=== PATIENT | female | born 1935 | race Caucasian/White ===

== ENCOUNTER 2018-08-14 14:26 | Inpatient (IN) | payer OTHER, MEDICAID ==
[~2018-08-14] VITALS: Ht 157.5 cm; Wt 63.0 kg
[2018-08-14 14:26] VITALS: BP 121/65
--- NOTE | 2018-08-14 14:30 | NUR ---
83Y/F BIB EMS FROM [facility], C/O SOB. PT WAS BEING MOVED AND PER STAFF O2 SAT DROPPED TO 80S. PT NOW ON 6L O2 IN ED AT 100%. RECENTLY DIAGNOSED WITH PNA, PT IS AAOX4, +1 EDEMA ON ARMS, BED DOWN, BEDRAIL UP X 1, ER MD AWARE AND NOTIFIED OF PT STATUS. PMH---CHF, PNA, HTN NKA
--- NOTE | 2018-08-14 15:13 | NUR ---
Patient being evaluated by physician at bedside.
[2018-08-14] MEDS ORDERED: ALBUTEROL SULFATE/IPRATROPIU 3 ML SOL IH ONE (15:15)
[2018-08-14] MEDS ORDERED: AZITHROMYCIN 500 MG in DEXTROSE 5% 250 ML IV ONE (15:45)
--- NOTE | 2018-08-14 15:50 | NUR ---
LAB AT BEDSIDE
[2018-08-14] MEDS ORDERED: cefTRIAXone 1,000 MG VIAL ONE (16:01)
[2018-08-14] MEDS ORDERED: AZITHROMYCIN 500 MG INJ VIAL IV ONE (16:01)
[2018-08-14 16:10] LABS: BASOPHILS % (AUTO) 0.2 % (0.0-2.0); EOSINOPHILS # (AUTO) 0.2 K/uL (0-0.4); EOSINOPHILS % (AUTO) 1.7 % (0.0-4.0); HEMATOCRIT 31.2 % (36-48); HEMOGLOBIN 10.3 g/dL (12.0-16.0); LYMPHOCYTES # (AUTO) 1.7 K/uL (2.5-16.5); LYMPHOCYTES % (AUTO) 15.1 % (20.5-51.1); MEAN CORPUSCULAR HEMOGLOBIN 29 pg (27-31); MEAN CORPUSCULAR HGB CONC 33 g/dL (33-37); MONOCYTES # (AUTO) 0.7 K/uL (0.8-1.0); MONOCYTES % (AUTO) 6.5 % (1.7-9.3); NEUTROPHILS # (AUTO) 8.7 K/uL (1.8-7.7); NEUTROPHILS % (AUTO) 76.5 % (42.2-75.2); PLATELET COUNT (AUTO) 375 K/uL (140-450); RED CELL DISTRIBUTION WIDTH 17.1 % (11.6-13.7); WHITE BLOOD COUNT (AUTO) 11.3 K/uL (4.8-10.8)
[2018-08-14 16:24] LABS: ANION GAP 7.7 (8-16); CARBON DIOXIDE 35.7 mmol/L (21-32); CHLORIDE 92 mmol/L (98-107); CREATININE 1.4 mg/dL (0.6-1.3); GLUCOSE 163 mg/dL (74-106); POTASSIUM 3.4 mmol/L (3.5-5.1); SODIUM SERUM 132 mmol/L (136-145); UREA NITROGEN, BLOOD 17 mg/dL (7-18)
[2018-08-14 16:29] LABS: ASPARTATE AMINOTRANSFERASE 31 U/L (15-37); TOTAL BILIRUBIN 0.3 mg/dL (0.0-1.0)
--- NOTE | 2018-08-14 16:43 | NUR ---
X-RAY AT BEDSIDE
--- NOTE | 2018-08-14 17:05 | NUR ---
PT HEART WENT UP TO 160, ER MD NOTIFIED AND AT BEDSIDE.
[2018-08-14] MEDS ORDERED: ACETAMINOPHEN 325 MG TAB PO PRN (17:15)
[2018-08-14] MEDS ORDERED: ONDANSETRON 4 MG/2 ML VIAL IVP PRN (17:15)
[2018-08-14] MEDS ORDERED: HYDROcodone/APAP 7.5/325 MG 1 TAB PO PRN (17:15)
--- NOTE | 2018-08-14 17:19 | NUR ---
LAB AT BEDSIDE 2ND TIME
[2018-08-14] MEDS ORDERED: ONDA4TAB PO (17:24)
[2018-08-14] MEDS ORDERED: LEVO750T2 PO (17:24)
[2018-08-14] MEDS ORDERED: APIX2.5 PO (17:24)
[2018-08-14] MEDS ORDERED: [UNRECOGNIZED DRUG - CODE] PO (17:24)
[2018-08-14] MEDS ORDERED: ATOR10TA PO (17:24)
[2018-08-14] MEDS ORDERED: VITD1000 PO (17:24)
[2018-08-14] MEDS ORDERED: SYN.05 PO (17:24)
[2018-08-14] MEDS ORDERED: METO25TE2 PO (17:24)
[2018-08-14] MEDS ORDERED: FURO-570 PO (17:24)
[2018-08-14] MEDS ORDERED: LINA5TAB PO (17:24)
[2018-08-14] MEDS ORDERED: GABA100C PO (17:24)
[2018-08-14] MEDS ORDERED: ZAR2.5 PO (17:24)
[2018-08-14] MEDS ORDERED: [UNRECOGNIZED DRUG - CODE] PO (17:24)
[2018-08-14] MEDS ORDERED: ALLO100T21 PO (17:24)
[2018-08-14] MEDS ORDERED: ALBUTEROL SULFATE/IPRATROPIU 3 ML SOL IH PRN (17:35)
[2018-08-14] MEDS ORDERED: NACL 0.9% 500 ML IV ONE (17:35)
[2018-08-14] MEDS ORDERED: INSULIN LISPRO SLIDING SCALE 100 UNITS/ML VIAL SUBQ PRN (17:40)
[2018-08-14] MEDS ORDERED: DEXTROSE 50% 50 ML SYR IVP PRN (17:40)
--- NOTE | 2018-08-14 17:50 | NUR ---
RUSS DICKEY RN, STATES BED WILL BE READY AFTER ICU TRANSFER A PATIENT OUT OF BED 1
[2018-08-14] MEDS ORDERED: DEXT 5% /NACL 0.9% 1,000 ML IV SCH (17:55)
[2018-08-14] MEDS ORDERED: ALBUTEROL SULFATE/IPRATROPIU 3 ML SOL IH SCH (18:00)
[2018-08-14 18:04] LABS: FREE T4 (FREE THYROXINE) 0.48 ng/dL (0.76-1.46); MAGNESIUM 1.4 mg/dL (1.8-2.4); PHOSPHORUS 3.1 mg/dL (2.5-4.9); THYROID STIMULATING HORMONE 2.62 uIU/mL (0.34-3.74)
[2018-08-14 18:06] LABS: PROTHROMBIN TIME 10.9 secs (10.8-13.4)
--- NOTE | 2018-08-14 18:16 | NUR ---
PT BEING EVALUATED BY DR. BARRIOS AT BEDSIDE
--- NOTE | 2018-08-14 18:25 | NUR ---
Patient will be admitted to care of . Admited to ICU BED 1. Will go to room 1. Belongings list completed. Report to DARRYL REYES.
[2018-08-14 18:27] LABS: APPEARANCE,URINE CLEAR (CLEAR); BILIRUBIN,URINE NEGATIVE (NEGATIVE); BLOOD, URINE NEGATIVE (NEGATIVE); COLOR,URINE YELLOW (YELLOW); LEUKOCYTE ESTERASE ,URINE NEGATIVE (NEGATIVE); NITRITE, URINE NEGATIVE (NEGATIVE); UGLUCOSE NEGATIVE (NEGATIVE)
[2018-08-14 18:30] VITALS: BP 117/51
--- NOTE | 2018-08-14 18:30 | NUR ---
RECEIVED PT FROM ER, BEDSIDE REPORT OBTAINED, PT IS AAOX4, MALAWIAN SPEAKING, ABLE TO FOLLOW COMMANDS AND MAKE NEEDS KNOWN, VSS, DENIES PAIN, NO S/S OF DISTRESS, CRACKLES LUNG SOUNDS LESLIE. ON 15L NON-REBREATHER, O2 SAT 96%, DENIES CHEST PAIN, ST ON SENIOR QUALITY ANALYST, SOFT ABDOMEN WITH ACTIVE BOWEL SOUNDS, INCONTINENT WITH B&B'S, SEVERE WEAKNESS TO BLE NOTED, SKIN IS WARM AND DRY TO TOUCH, BRUISE NOTED TO LEFT ARM, IV SITE TO LEFT FOREARM, 22GA, PATENT. HOB ENERVATED TO 30 DEGREES, SAFETY MEASURES IN PLACE, POSITION CHANGED FOR COMFORT, WILL CONTINUE TO MONITOR.
--- NOTE | 2018-08-14 19:18 | NUR ---
REPORT GIVEN TO AUTOMATIC SPINNING LATHE OPERATOR NURSE FOR CONTINUE OF CARE.
--- NOTE | 2018-08-14 19:30 | NUR ---
RECEIVED BEDSIDE REPORT FROM MORNING SHIFT RNAMY, FOR CONTINUITY OF CARE. PT IS AWAKE, GEORGIAN SPEAKING, ABLE TO MAKE NEEDS KNOWN. TEMP 97.0, BP 118/80, RR=39, SATING AT 92%. ON NASAL CANNULA AT 4L/MIN. RT AT BEDSIDE. LUNG SOUNDS DIMINISHED/COARSE ON UPPER LOBES. CHEST RISE WITH INSPIRATION. BOWEL SOUND ACTIVE X4 QUADRANTS. NO DELUCA IN PLACE, PT IS INCONTINENT. NO DELUCA IN PLACE. LEFT FA 22 GUAGE PIV, SALINE FLUSHED WITH BLOOD RETURN. NO INFUSION AT THIS TIME. SKIN IS INTACT. NKA, DNR STATUS. STANDARD PRECAUTIONS MAINTAINED. HOB ELEVATED ABOVE 30 DEG.
--- NOTE | 2018-08-14 19:33 | NUR ---
DAUGHTER AND SON AT BEDSIDE. AWARE OF PT CONDITION AND THAT PT HAS INCREASED WOB. FAMILY AGREES TO KEEP PT ON JUST OXYGEN FOR NOW. FAMILY MAKING DECISION ON WHETHER TO PUT PT ON BIPAP OR NOT PT IS DNR. WILL CONTINUE TO MONITOR PT.
--- NOTE | 2018-08-14 19:41 | NUR ---
DR. CONNER AT BEDSIDE TO SEE PATIENT AND FAMILY.
[2018-08-14 20:00] VITALS: BP 118/80
--- NOTE | 2018-08-14 20:10 | NUR ---
RT LAUREANO AT BEDSIDE TO SET PT ON BIPAP: 04/11. FAMILY AT BEDSIDE TO SEE PATIENT. GN=587, SATING 99%, RR=24-28, 98/48.
--- NOTE | 2018-08-14 20:19 | NUR ---
PUT PT ON BIPAP PER MD ORDER. FAMILY AT BEDSIDE. PT IS AWAKE AND ALERT. ALBANIAN SPEAKING ONLY. SETTINGS CHARTED. BIPAP CONNECTED TO RED OUTLET. MASK MEDIUM. WILL CONTINUE TO MONITOR.
[2018-08-14 20:21] VITALS: BP 98/48
[2018-08-14] MEDS ORDERED: LORazepam 2 MG/ML VIAL IVP PRN (20:30)
[2018-08-14] MEDS ORDERED: PROMETHAZINE DM 6.25/15MG-5ML ORASYR PO PRN (20:30)
[2018-08-14] MEDS: BLOOD GLUCOSE MONITORING 1 DEV DEV FS SCH (20:40)
[2018-08-14] MEDS: ATORVASTATIN 20 MG TAB PO SCH ×2 (21:00→21:48)
[2018-08-14] MEDS: DOCUSATE SODIUM 100 MG GELCAP PO SCH ×2 (21:00→21:49)
[2018-08-14] MEDS ORDERED: MAG SULF 2000 MG/WATER PREMIX 50 ML IV SCH (21:00)
[2018-08-14] MEDS ORDERED: PIPERACILLIN/TAZOBACTAM 2.25 GM in DEXTROSE 5% 50 ML IV SCH (21:00)
[2018-08-14] MEDS: POTASSIUM CHLORIDE 20% 40 MEQ/15 ML UDC PO SCH ×2 (21:00→21:48)
[2018-08-14] MEDS: PIPER/TAZO 2.25GM/D5W PREMIX 50 ML IV SCH (21:48)
[2018-08-14 22:00] VITALS: BP 98/48
--- NOTE | 2018-08-14 22:30 | NUR ---
PO MEDS HELD AT THIS TIME. PT IS NOT ALERT TO SWALLOW MEDS. MADE AWARE.
[2018-08-15] VITALS (19 sets, daily range): BP systolic 92–143; BP diastolic 7–108
--- NOTE | 2018-08-15 00:07 | NUR ---
PT TOLERATING BIPAP WELL FAMILY AT BEDSIDE. NO SOB OR DISTRESS NOTED. WILL CONTINUE TO MONITOR.
[2018-08-15] MEDS ORDERED: LEVOFLOXACIN 250 MG/D5 PREMIX 50 ML IV SCH (01:00)
--- NOTE | 2018-08-15 01:38 | NUR ---
(0048) MAY FROM PHARMACY CALLED TO CLARIFY MEDICATION ORDERS/DOSING. CALLED RESIDENT PHONE AND SPOKE WITH MED STUDENT, WHO RELAYED MESSAGE TO DR. LAMBERT. RECEIVED CALL BACK FROM DR. LAMBERT AND PROVIDED WITH TEST DEVELOPER PHARMACY NUMBER AND PT MEDS. DR. LAMBERT TO FOLLOWUP WITH PHARM AND UPDATE ORDERS.
[2018-08-15] MEDS ORDERED: APIXABAN 2.5 MG TAB PO SCH ×2 (02:00→09:00)
--- NOTE | 2018-08-15 02:03 | NUR ---
PT ASLEEP TOLERATING BIPAP WELL NO SOB OR DISTRESS NOTED. WILL CONTINUE TO MONITOR
--- NOTE | 2018-08-15 02:04 | NUR ---
DECREASED FIO2 TO 70% SPO2 100%
[2018-08-15] MEDS: PIPER/TAZO 2.25GM/D5W PREMIX 50 ML IV SCH ×2 (04:27→13:52)
--- NOTE | 2018-08-15 04:37 | NUR ---
ON BIPAP FIO2=50%, IPAP 12/6, RR=21. PT SLEEPING, VSS, SATING 99%.REPOSITIONED
--- NOTE | 2018-08-15 05:27 | NUR ---
AM CARES, FRESH LINEN AND PT REPOSITIONED. SKIN IS INTACT, MILD NONBLANCHABLE REDNESS ON BUTTOCKS APPLIED DRESSING AT THIS TIME. MARIA TERESA AT BEDSIDE TO COLLECT SAMPLE. AWAKE, CALM, COOPERATIVE
--- NOTE | 2018-08-15 06:28 | NUR ---
DR. HUTTON AT BEDSIDE TO SEE PATIENT, UPDATED ON CONDITION.
[2018-08-15] MEDS ORDERED: LEVOTHYROXINE 0.05 MG TAB PO SCH ×2 (06:30)
[2018-08-15] MEDS ORDERED: LEVOTHYROXINE 0.1 MG, LEVOTHYROXINE 0.025 MG PO SCH ×2 (06:30)
[2018-08-15 06:58] LABS: PHOSPHORUS 3.6 mg/dL (2.5-4.9)
[2018-08-15 06:59] LABS: CHOL/HDL RATIO 2.4 (1-4.5)
--- NOTE | 2018-08-15 07:24 | NUR ---
GAVE BEDSIDE REPORT TO MORNING SHIFT RNJEFFRY. ENDORSED PO MEDS HAVE BEEN HELD DUE TO PT ASPIRATION RISK.
[2018-08-15 07:52] LABS: ANION GAP 8.1 (8-16); CHLORIDE 94 mmol/L (98-107); CREATININE 1.4 mg/dL (0.6-1.3); GLUCOSE 128 mg/dL (74-106); POTASSIUM 3.1 mmol/L (3.5-5.1); SODIUM SERUM 134 mmol/L (136-145); UREA NITROGEN, BLOOD 17 mg/dL (7-18)
[2018-08-15] MEDS: BLOOD GLUCOSE MONITORING 1 DEV DEV FS SCH ×2 (07:53→12:00)
--- NOTE | 2018-08-15 08:00 | NUR ---
PATIENT DROWSY, ORIENTEDX4 KISWAHILI SPEAKING ON BIPAP, FAMILY AT BEDSIDE FOR INTERPRETATION, SINUS RHYTHM ON MONITOR, INCONTINENT AND REFUSED DELUCA CATHETER INSERTION SINCE WATERPROOF MATERIAL FOLDER, GAUGE 22 LEFT FOREARM ON D5NS 60CC/HR. LINE ASYMPTOMATIC, MILD BLUISH DISCOLORATION BOTH KNEES AND BOTH FOREARM
--- NOTE | 2018-08-15 08:17 | NUR ---
INFORMED DR. POMPA THAT PATIENT IS NOT FULLY AWAKE AT THIS TIME AND HAD EPISODE OF DESATURATION TO 85% DURING SLIGHT REPOSITIONIN AND IT IS NOT SAFE TO FEED OR GIVE P.O MEDICATIONS AT THIS TIME. "OK NPO FOR NOW" PER PHYSICIAN
--- NOTE | 2018-08-15 08:35 | NUR ---
PATIENT REMOVED FROM BIPAP TP MASK FOR AM TRAY PLACED ON SUPPLEMENTAL OXYGEN AT 6 LPM VIA OXYMIZER SATURATION 95% HR 100 RR 20 BREATH SOUNDS CLEAR APEX TO MID WITH DECREASED AT BILATERAL BASES CHEST RISE EQUAL BILATERAL
[2018-08-15] MEDS: ALBUTEROL SULFATE/IPRATROPIU 3 ML SOL IH SCH ×3 (08:57→15:56)
[2018-08-15] MEDS ORDERED: CHOLECALCIFEROL 1,000 IU TAB PO SCH (09:00)
[2018-08-15] MEDS ORDERED: METOPROLOL SUCCINATE 50 MG TABER PO SCH ×2 (09:00)
[2018-08-15] MEDS ORDERED: ALLOPURINOL 100 MG TAB PO SCH (09:00)
[2018-08-15] MEDS ORDERED: FAMOTIDINE 20 MG TAB PO SCH (09:00)
[2018-08-15 09:18] LABS: BASOPHILS % (AUTO) 0.2 % (0.0-2.0); EOSINOPHILS # (AUTO) 0.4 K/uL (0-0.4); EOSINOPHILS % (AUTO) 2.8 % (0.0-4.0); HEMATOCRIT 28.6 % (36-48); HEMOGLOBIN 9.4 g/dL (12.0-16.0); LYMPHOCYTES # (AUTO) 1.7 K/uL (2.5-16.5); LYMPHOCYTES % (AUTO) 13.1 % (20.5-51.1); MEAN CORPUSCULAR HEMOGLOBIN 30 pg (27-31); MEAN CORPUSCULAR HGB CONC 33 g/dL (33-37); MEAN CORPUSCULAR VOLUME 90.5 fL (80-94); MONOCYTES # (AUTO) 0.8 K/uL (0.8-1.0); NEUTROPHILS # (AUTO) 10.1 K/uL (1.8-7.7); NEUTROPHILS % (AUTO) 77.9 % (42.2-75.2); PLATELET COUNT (AUTO) 333 K/uL (140-450); RED BLOOD CELL COUNT(AUTO) 3.16 MIL/uL (4.20-5.40); RED CELL DISTRIBUTION WIDTH 16.7 % (11.6-13.7)
--- NOTE | 2018-08-15 09:20 | NUR ---
REVIEWED [facility] SAMPLE REPORT WITH DR. MARGARET HUTTON NO NEW ORDERS
[2018-08-15] MEDS ORDERED: POTASSIUM CHLORIDE 40 MEQ, LIDOCAINE 1% 25 MG in NACL 0.9% 250 ML IV SCH (09:30)
[2018-08-15] MEDS: DOCUSATE SODIUM 100 MG GELCAP PO SCH (09:56)
--- NOTE | 2018-08-15 09:59 | NUR ---
PLACED ON BIPAP VISION PLUGGED INTO RED OUTLET TO A MEDIUM MASK SECURED WITH A HEAD STRAP TOLERATING WELL WITHOUT ADVERSE REACTIONS NOTED
[2018-08-15] MEDS ORDERED: SODIUM FERRIC GLUCONATE 125 MG in NACL 0.9% 100 ML IV SCH ×2 (10:00→13:30)
[2018-08-15] MEDS ORDERED: FUROSEMIDE 20 MG/2 ML VIAL IVP SCH (10:15)
[2018-08-15] MEDS ORDERED: PROBIOTIC SCREEN 1 EA MISC MC PRN (10:20)
--- NOTE | 2018-08-15 14:12 | NUR ---
08/15/18 RD INITIAL ASSESSMENT COMPLETED PLEASE REFER TO NUTRITION ASSESSMENT UNDER CARE ACTIVITY FOR ESTIMATED NUTRITIONAL NEEDS. 1. CONTINUE NPO MEDICALLY NECESSARY 2. IF PATIENT PASSES SWALLOW EVALUATION CONSIDER CCHO 60 GM WITH RECOMMENDED FOOD TEXTURE BY SWALLOW EVAL 3. IF PT FAILS SWALLOW EVAL CONSIDER ENTERAL NUTRITION 4. RD TO FOLLOW-UP 2-3 DAYS, HIGH RISK JOSEFINA MONTANO, RD
--- NOTE | 2018-08-15 16:00 | NUR ---
Dr. Artis at bedside and talked to family. Family agreed to do comfort care, morphine drip and no more BIPAP
--- NOTE | 2018-08-15 16:05 | NUR ---
PER DR. BARRIOS PATIENT WILL GO ON COMFORT MEASURES AND BEGAN MORPHINE DRIP. PER DR. BARRIOS KEEP PATIENT ON BIPAP UNTIL MORPHINE DRIP BEGINS THEN SHE CAN BE PLACED ONTO A NASAL CANNULA.
[2018-08-15] MEDS ORDERED: LORazepam 2 MG/ML VIAL IM/IVP PRN (16:10)
[2018-08-15] MEDS ORDERED: MORPHINE SULFATE 5 MG/ML VIAL IVP PRN (16:25)
[2018-08-15] MEDS ORDERED: SCOPOLAMINE 1.5 MG/72 HR PATCH TD SCH (16:49)
--- NOTE | 2018-08-15 16:51 | NUR ---
PATIENT ON COMFORT MEASURES PER JEFFRY/CONTROLS TECHNICIAN REQUESTING FOR PATIENT TO OFF BIPAP AND PLACE ON NC PLATFORM BUILDER ENTERED ROOM WITH FAMILY MEMBERS IN ROOM FOUND PATIENT TO BE OFF BIPAP AND ON SUPPLEMENTAL OXYGEN AT 6LPM VIA OXYMIZER FOLLOWING STAFF DID NOT REMOVE PATIENT FROM BIPAP AND PLACE SUPPLEMENTAL OXYGEN JEFFRY/DARRYL; Parth HICKS, PLATFORM BUILDER; Eda MADRIGAL, PLATFORM BUILDER
[2018-08-15] MEDS ORDERED: MORPHINE SULFATE 100 MG in NACL 0.9% 90 ML IV PRN (17:00)
--- NOTE | 2018-08-15 17:17 | NUR ---
2ND FOLLOW UP TO PHARMACY REGARDING THE MORPHINE DRIP AND SCOPALAMINE. SPOKE TO SHERMAN
--- NOTE | 2018-08-15 17:29 | NUR ---
Corporation Secretary Note: I met with patient's daughter and son, Schuyler at bedside. They told me they had requested room change to accommodate their family and would like an update. I informed Package Car Driver Muna of patient's family request. Per RN Muna, he will speak with patient's family regarding room change.
--- NOTE | 2018-08-15 17:31 | NUR ---
started patient on morphine drip 2mgs/hr. patient looks calm comfortable at this time and denies pain. Family at bedside
--- NOTE | 2018-08-15 18:00 | NUR ---
Report given to receiving RN over the phone
--- NOTE | 2018-08-15 18:08 | NUR ---
Patient taken to [facility] by warehouse receiving supervisor via ICU bed, belongings sent with family, morphine bags given to warehouse receiving supervisor
--- NOTE | 2018-08-15 18:15 | NUR ---
RECEIVED TELEPHONE REPORT FROM ICU NURSE. PATIENT NOW ON [facility] FLOOR. PATIENT IS ALERT, AND ORIENTEDX4. NO SIGNS OF DISTRESS ON 7L OXYMIZER. PER FAMILIES REQUEST PATIENT ON CONTINUES VITALS MONITORING. VITALS ARE B/P 99/34 HR 98 RR 16 OXYGEN SAT 92% 97.1 TEMP. SKIN IS INTACT. PATIENT IS WEAK, FALL RISK PROTOCOL IN PLACE. IV ON L FA 22G INFUSING MORPHINE AT 2MG/HR. CLEAN, DRY AND INTACT. PATIENT ABLE TO MAKE NEEDS KNOWN. FAMILY AT BEDSIDE. BED IN LOW POSITION. CALL LIGHT WITHIN REACH. WILL CONTINUE TO MONITOR THE PATIENT
[2018-08-15] MEDS: PROMETHAZINE DM 6.25/15MG-5ML ORASYR PO PRN (19:04)
--- NOTE | 2018-08-15 19:04 | NUR ---
ADMINISTERED PRN COUGH MED W APPLESAUCE. PATIENT TOLERATED WELL. NO SIGNS OF DISTRESS. EDUCATED ON SIDE EFFECTS. BED IN LOW POSITION. WILL CONTINUE TO MONITOR
[2018-08-15] MEDS ORDERED: MORPHINE SULFATE 4 MG/ML SYR IVP PRN (19:05)
--- NOTE | 2018-08-15 19:10 | NUR ---
GAVE BEDSIDE REPORT TO EMBRYOLOGY TEACHER NURSE. PATIENT ENDORSED IN STABLE CONDITION
--- NOTE | 2018-08-15 19:15 | NUR ---
RECEIVED PT IN FAIR CONDITION FROM AM NURSE. MED SURG. PT. TRANSFERRED FROM ICU FOR COMFORT MEASURE. PT WITH NO RESPIRATORY DISTRESS NOTED AT THIS TIME. NO S/S OF ANY DISCOMFORT NOTED. WITH OCCASIONAL NON PRODUCTIVE COUGH. ON O2 10L BY OXYMIZER. 02 SAT 98%. BEDREST. HOB ELEVATED 30DEG. HAS MORPHINE DRIP INFUSING ON THE LT FA G#22. CLEAR AND PATENT. WITH A LOT OF FAMILY MEMBERS PRESENT AT BEDSIDE. THEY TALK TO PT AND PT SEEMS TO UNDERSTAND. BED ON LOWEST POSITION. SIDE RAILS ARE UP X2. CALL LIGHT PLACED WITHIN REACH. FAMILY INSTRUCTED TO CALL FOR ANY ASSISTANCE. WILL CONTINUE TO MONITOR.
--- NOTE | 2018-08-15 20:00 | NUR ---
PT HAS OCCASIONAL COUGH. WITH SLIGHT GURGLING SOUNDS. TRIED TO SUCTION FROM MOUTH . NO SECRETIONS NOTED.
--- NOTE | 2018-08-15 21:30 | NUR ---
PT INCONTINENT OF URINE. CLEANED AND KEPT DRY. REPOSITIONED FOR COMFORT. NO RESPIRATORY DISTRESS NOTED.
--- NOTE | 2018-08-15 22:00 | NUR ---
PT IS ASLEEP. NO RESPIRATORY DISTRESS NOTED. WITH O2 10 L / OXYMIZER. O2 SAT 100%. FAMILY MEMBERS STILL AT BEDSIDE. WILL CONTINUE TO MONITOR.
[2018-08-16] MEDS: PROMETHAZINE DM 6.25/15MG-5ML ORASYR PO PRN (00:42)
--- NOTE | 2018-08-16 00:48 | NUR ---
WITH OCCASIONAL NON PRODUCTIVE COUGH. MEDICINE FOR COUGH GIVEN. TOLERATED WELL WITH SOME APPLE SAUCE.
--- NOTE | 2018-08-16 02:00 | NUR ---
PT HAD SOME WATER WITH THICKENER PER SON'S REQUEST. DR. LAMBERT SAID OK TO GIVE. PT TOLERATED WELL.
--- NOTE | 2018-08-16 03:43 | NUR ---
MADE ROUNDS. PT SLEEPING WITH O2 10L/OXYMIZER. O2 SAT 98%. NO DISTRESS NOR DISCOMFORT NOTED. FAMILY MEMBERS STILL AT BEDSIDE.
[2018-08-16 04:25] VITALS: BP 98/45
--- NOTE | 2018-08-16 05:15 | NUR ---
MADE ROUNDS. PT IS ASLEEP. NO S/S OF ANY RESPIRATORY DISTRESS NOTED. O2 SAT 95-96% ON OXYMIZER 10L. FAMILY MEMBERS STAYS AT BEDSIDE.
--- NOTE | 2018-08-16 06:38 | NUR ---
PT ASLEEP. FAMILY AT BEDSIDE. NO RESPIRATORY DISTRESS NOTED.
--- NOTE | 2018-08-16 07:10 | NUR ---
ENDORSED PT IN STABLE CONDITION TO AM NURSE FOR CONTINUITY OF CARE.
--- NOTE | 2018-08-16 07:11 | NUR ---
RECEIVED BEDSIDE REPORT FROM PADDOCK JUDGE NURSE. PATIENT IS DROWSY BUT EASILY AROUSABLE, ON MORPHINE DRIP 2MG/HR. IV ON L FA 22G. CLEAN, DRY AND INTACT. PATIENT IS BEDBOUND, FALL RISK PROTOCOL IN PLACE. PATIENT IS INCONTINENT. SKIN IS INTACT. PATIENT IS DNR. CALL LIGHT WITHIN REACH. BED IN LOW POSITION. WILL CONTINUE TO MONITOR THE PATIENT. FAMILY AT BEDSIDE.
--- NOTE | 2018-08-16 08:25 | NUR ---
PATIENT SOILED, CLEANED PATIENT. PATIENT TOLERATED WELL. FAMILY AT BEDSIDE, GAVE FAMILY WATER TO DRINK. WILL CONTINUE TO MONITOR
[2018-08-16] MEDS ORDERED: LACTOBACILLUS RHAMNOSUS GG 1 EACH CAP PO SCH (09:00)
[2018-08-16] MEDS ORDERED: APIXABAN 2.5 MG TAB PO SCH (09:00)
--- NOTE | 2018-08-16 10:30 | NUR ---
FAMILY AT BEDSIDE, THEY ARE CURRENTLY PRAYING FOR THE PATIENT. BED IN LOW POSITION. CALL LIGHT WITHIN REACH. WILL CONTINUE TO MONITOR THE PATIENT
--- NOTE | 2018-08-16 11:00 | NUR ---
OXYGEN REMOVED, PER FAMILY REQUEST. DOCTOR ERIS IS AWARE.
--- NOTE | 2018-08-16 11:11 | NUR ---
SCREEN FOR LOW DEYA SCALE AT RISK, SKIN INTACT PRESSURE INJURY PREVENTION INTERVENTIONS IN PLACE. -TURN AND REPOSITION PATIENT Q 2H OFFLOAD LEFT AND RIGHT HIPS -ASSESS AND MONITOR SKIN CONDITION DURING POSITION CHANGE, PLEASE PAY ATTENTION TO FEET AND HEELS -OFFLOAD BILATERAL HEELS BY PLACING PILLOWS UNDER CALVES AT ALL TIMES, UNLESS OTHERWISE CONTRAINDICATED -PRESSURE REDISTRIBUTION SURFACE THERAPY -KEEP SKIN CLEAN AND DRY AT ALL TIMES.
--- NOTE | 2018-08-16 11:18 | NUR ---
FAMILY WANTS PATIENT MORE COMFORTABLE. THEY SAID THAT SHE SEEMS TO BE IN DISTRESS, BREATHING PATTERN ABNORMAL, GAVE ATIVAN PER FAMILY REQUEST. AND AGITATION. FAMILY AWARE OF SIDE EFFECTS. WILL CONTINUE TO MONITOR
--- NOTE | 2018-08-16 11:42 | NUR ---
PATIENT HAS NO PULSE. DR SCHULTE CHECKED FOR PUPIL RESPONSE, PULSE, BREATHING, AND AUSCULTATED THE HEART. TIME OF PRONOUNCED AT 1142.
--- NOTE | 2018-08-16 12:05 | NUR ---
TALKED TO [facility], ANSWERED ALL QUESTIONS AT THIS TIME, GAVE THEM MY CALL BACK NUMBER AND FAXED PATIENTS [facility]. THEY SAID THEY WILL CALL FOR MORE INFORMATION IF NEEDED. REFERRAL #[id number]
--- NOTE | 2018-08-16 12:15 | NUR ---
CALLED [facility] AT 1215, GAVE THEM CALL BACK NUMBER. THEY SAID THEY WILL CALL BACK AND ASK ME A FEW QUESTIONS
--- NOTE | 2018-08-16 12:39 | NUR ---
CALLED [facility]. GAVE THEM INFORMATION THEY NEEDED. THEY SAID ONCE I HAVE [facility] I CAN CALL THEM BACK AND THEY WILL GIVE ME THE ETA OF TRANSPORT.
--- NOTE | 2018-08-16 13:25 | NUR ---
TALKED TO DEPUTY ELROY HOLLIDAY. HE SAID SHE IS CLEARED. CASE #[id number]. Addendum: 08/16/18 at 1539 by Shanda Espinoza RN [facility]
--- NOTE | 2018-08-16 13:33 | NUR ---
[facility] SAID ETA MAYBE IN 40 MINS. CALLED [facility] AT [phone], SON, TO LET HIM KNOW THAT SHE MAY BE TRANSPORTED SOON.
--- NOTE | 2018-08-16 14:00 | NUR ---
IV REMOVED, ID BANDS REMOVED
--- NOTE | 2018-08-16 15:30 | NUR ---
[facility] NOT HERE YET. WILL AWAIT THEIR ARRIVAL
--- NOTE | 2018-08-16 15:50 | NUR ---
[facility] HERE TO CAREER DEVELOPMENT MANAGER THE PATIENT.
--- NOTE | 2018-08-16 15:55 | NUR ---
PATIENT LEFT WITH TWO REPRESENTATIVES FROM [facility]
[2018-08-18] MEDS ORDERED: SCOPOLAMINE 1.5 MG/72 HR PATCH TD SCH (09:00)
--- NOTE | 2018-09-12 12:05 | NUR ---
ON 08/15/2018 AT 1937 PATIENT WAS ON 10 L OXIMIZER. AMEND DOCUMENTATION ERROR "MECHANICAL VENTILATION".
== END 2018-08-16 15:55 | disposition expired | DRG 871 ==
LOC: MED 14:26 → MIC 17:18 → MTU 08-15 18:43
PROVIDERS: ADMIT General Practice; ATTEND General Practice
PROC: 5A09357 Assistance with Respiratory Ventilation, Less than 24 Consecutive Hours, Continuous Positive Airway Pressure (ICD-10-PCS; principal; 2018-08-14)
DX: A41.9 Sepsis, unspecified organism (principal); J69.0 Pneumonitis due to inhalation of food and vomit; I50.43 Acute on chronic combined systolic (congestive) and diastolic (congestive) heart failure; N17.0 Acute kidney failure with tubular necrosis; E43 Unspecified severe protein-calorie malnutrition; J96.21 Acute and chronic respiratory failure with hypoxia; J96.22 Acute and chronic respiratory failure with hypercapnia; E87.1 Hypo-osmolality and hyponatremia; R65.20 Severe sepsis without septic shock; M10.9 Gout, unspecified; I11.0 Hypertensive heart disease with heart failure; I48.91 Unspecified atrial fibrillation; E83.42 Hypomagnesemia; E87.6 Hypokalemia; E78.5 Hyperlipidemia, unspecified; E03.9 Hypothyroidism, unspecified; D64.9 Anemia, unspecified; E78.00 Pure hypercholesterolemia, unspecified; Z96.653 Presence of artificial knee joint, bilateral; I46.9 Cardiac arrest, cause unspecified; E11.65 Type 2 diabetes mellitus with hyperglycemia; F03.90 Unspecified dementia, unspecified severity, without behavioral disturbance, psychotic disturbance, mood disturbance, and anxiety; Z51.5 Encounter for palliative care; Z68.25 Body mass index [BMI] 25.0-25.9, adult; Z87.01 Personal history of pneumonia (recurrent); Z99.81 Dependence on supplemental oxygen; Z79.899 Other long term (current) drug therapy; Z79.01 Long term (current) use of anticoagulants
CPT/HCPCS: 36415; 36600; 71045; 80048; 80053; 81003; 82150; 82803; 82948; 83036; 83540; 83605; 83690; 83735; 83880; 84100; 84439; 84443; 84484; 85025; 85610; 85730; 87040; 87086; 93005; 94640; 94660; 96365; 96367; 99285; J0456; J0696; J1815; J1940; J1956; J2001; J2060; J2270; J2543; J2916; J3475; J3480; J7030; J7042; J7060; J7620; Q0092